=== PATIENT | female | born 1995 | race Caucasian/White ===

== ENCOUNTER 2018-03-05 15:57 | Emergency (ER) | payer OTHER ==
[~2018-03-05] VITALS: Ht 177.8 cm; Wt 90.9 kg
[~2018-03-05 15:57] MED LIST: LO LOESTRIN FE1 TAB PO; MULTIPLE VITAMI1 CAP PO; ROXICODONE 55 MG/TAB PO
[2018-03-05 16:01] VITALS: BP 135/76; TEMP 98.9
[2018-03-05 16:27] LABS: COLLECTION METHOD CLEAN CATCH
[2018-03-05 16:39] LABS: BASO # 0.1 (0.0-0.2); BASO % 0.5 % (0.0-2.0); EOS # 0.1 (0.0-0.7); EOS % 0.7 % (0-4.0); GRAN # 8.3 (1.4-6.5); HEMATOCRIT 41.3 % (37.0-47.0); HEMOGLOBIN 13.7 g/dl (12.5-16.0); LYMPH # 2.9 (1.2-3.4); LYMPH % 23.3 % (20.0-51.0); MEAN CELL VOLUME 87 fl (80.0-100.0); MEAN CORPUSCULAR HEMOGLOBIN 29 pg (27.0-31.0); MEAN CORPUSCULAR HGB CONC 33 g/dl (33.0-37.0); MEAN PLATELET VOLUME 9.9 fl (7.4-10.4); MONO # 0.9 (0.1-0.6); MONO % 7.2 % (1.7-9.3); PLATELET COUNT 254 K/mm3 (130-400); RED BLOOD COUNT 4.75 M/mm3 (4.10-5.30); REDCELL DISTRIBUTION WIDTH-CV 13.3 % (11.5-14.5)
[2018-03-05 16:41] LABS: MUCOUS Present /lpf; PH 5 (5-8); SQUAMOUS EPITHELIAL 0-2 /hpf; URINE APPEARANCE Cloudy; URINE BACTERIA None Seen /hpf; URINE BILIRUBIN Negative (NEGATIVE); URINE BLOOD 1+ (NEGATIVE); URINE COLOR Yellow; URINE GLUCOSE Negative (NEGATIVE); URINE KETONE 1+ (NEGATIVE); URINE LEUKOCYTE ESTERASE Negative (NEGATIVE); URINE NITRATE Negative (NEGATIVE); URINE PROTEIN(semi-quant) 1+ (NEGATIVE); URINE RBC >50 /hpf; URINE UROBILINOGEN Negative (NEGATIVE)
[2018-03-05 16:46] LABS: ALBUMIN 4.7 gm/dL (3.5-5.0); BILIRUBIN,TOTAL 0.6 mg/dL (0.0-1.0); CALCIUM 9.6 mg/dL (8.4-10.2); CREATININE, serum 0.67 mg/dL (0.52-1.25); POTASSIUM 3.8 mmol/L (3.4-5.0); TOTAL PROTEIN 8.4 gm/dL (6.4-8.2)
[2018-03-05] MEDS ORDERED: ZOFRAN ODT4 MG PO (17:02)
[2018-03-05] MEDS ORDERED: NORCO 325 MG-51 TAB PO (17:02)
[2018-03-05 17:59] VITALS: PULSE 84
== END 2018-03-05 18:01 | disposition home or self-care (01) ==
LOC: COL.ER 15:57
PROVIDERS: Emergency Medicine
DX: N23 Unspecified renal colic (principal); Z87.442 Personal history of urinary calculi
CPT/HCPCS: J1170; J1885; J2405; J7030

== ENCOUNTER 2024-01-01 20:45 | Emergency (ER) | payer BC ==
[~2024-01-01] VITALS: Ht 175.3 cm; Wt 113.6 kg
[~2024-01-01 20:45] MED LIST changes: +NORCO 325 MG-51 TAB PO; +ZOFRAN ODT4 MG PO
[2024-01-01 20:55] VITALS: TEMP 98.7
[2024-01-01 21:12] LABS: COLLECTION METHOD CLEAN CATCH
[2024-01-01] MEDS ORDERED: Morphine 10 MG/ML VIAL IM ONE (21:15)
[2024-01-01] MEDS ORDERED: Ketorolac 30 MG/ML VIAL IM ONE (21:15)
[2024-01-01 21:22] LABS: URINE APPEARANCE TURBID (CLEAR/HAZY); URINE BLOOD TRACE (NEGATIVE); URINE COLOR Dark Yellow (YELLOW); URINE GLUCOSE NEGATIVE (NEGATIVE); URINE KETONE NEGATIVE (NEGATIVE); URINE NITRATE NEGATIVE (NEGATIVE); URINE PROTEIN(semi-quant) NEGATIVE (NEGATIVE); URINE UROBILINOGEN 0.2 E.U/dL (0.2-1.0)
[2024-01-01] MEDS ORDERED: Home HYDROcodone/Acetaminophen 5/325 MG #4 TABS/PACK PO ONE (22:00)
[2024-01-01 22:10] VITALS: BP 128/84; PULSE 74
== END 2024-01-01 22:10 | disposition home or self-care (01) ==
LOC: COL.ER 20:45
PROVIDERS: Emergency Medicine
DX: N20.1 Calculus of ureter (principal); Z87.442 Personal history of urinary calculi
CPT/HCPCS: J1885; J2270